=== PATIENT | male | born 1990 | race Caucasian/White ===

== ENCOUNTER 2020-05-06 05:52 | Day surgery (SDC) | payer BC ==
[2020-04-29 15:33] LABS: BASOPHILS # (AUTO) 0.1 X10'3 (0-0.2); BASOPHILS % (AUTO) 1.1 % (0-1); EOSINOPHILS # (AUTO) 0.2 X10'3 (0-0.9); EOSINOPHILS % (AUTO) 2.8 % (0-6); LYMPHOCYTES # (AUTO) 2.1 X10'3 (1.1-4.8); LYMPHOCYTES % (AUTO) 27.1 % (21-51); MEAN CORPUSCULAR HEMOGLOBIN 31.2 PG (27.0-31.0); MEAN CORPUSCULAR HGB CONC 33.7 g/dL (33.0-36.5); MEAN CORPUSCULAR VOLUME 92.8 FL (78-98); MEAN PLATELET VOLUME 7.4 FL (7.4-10.4); MONOCYTES # (AUTO) 0.7 X10'3 (0-0.9); MONOCYTES % (AUTO) 8.9 % (2-12); NEUTROPHILS # (AUTO) 4.6 X10'3 (1.8-7.7); NEUTROPHILS % (AUTO) 60.1 % (42-75); PRE OP HEMATOCRIT 52.5 % (42.0-52.0); PRE OP HEMOGLOBIN 17.7 g/dL (14.0-17.9); PRE OP PLATELET COUNT 383 X10'3 (140-440); RED BLOOD COUNT 5.66 X10'6 (4.70-6.10); RED CELL DISTRIBUTION WIDTH 14.1 % (11.5-14.5)
[2020-04-29 15:50] LABS: PRE OP PROTIME 10.1 SECONDS (9.0-12.0)
[2020-04-29 15:53] LABS: ALBUMIN 3.9 G/DL (3.4-5.0); ALKALINE PHOSPHATASE 78 IU/L (46-116); BLOOD UREA NITROGEN 9 MG/DL (7-18); BUN/CREATININE RATIO 6.2 (5.4-32.0); CALCIUM 9.2 MG/DL (8.5-10.1); CHLORIDE 106 MMOL/L (99-107); CREATININE 1.46 MG/DL (0.60-1.10); PRE OP ANION GAP 6 (8-16); PRE OP AST 51 U/L (10-37); PRE OP BILIRUB, TOTAL 0.4 MG/DL (0.0-1.0); PRE OP GLUCOSE 86 MG/DL (70-104); PRE OP POTASSIUM 4.4 MMOL/L (3.4-5.1); PRE OP SODIUM 140 MMOL/L (135-145); TOTAL CARBON DIOXIDE 27.8 MMOL/L (24-32); TOTAL PROTEIN 7.8 G/DL (6.4-8.2); eGFR 57 ML/MIN
[2020-04-29 15:56] LABS: PRE OP ALT 128 U/L (30-65)
[~2020-05-06] VITALS: Ht 185.4 cm; Wt 111.4 kg
[2020-05-06] VITALS (12 sets, daily range): BP systolic 132–159; BP diastolic 85–107
[~2020-05-06 05:52] MED LIST: NO HOME MEDS; famotidine 20mg tablet PO ONE; oxymetazoline 15 ML nasal spray NS PRN; ringers solution, lacted 1,000 ML IV SCH
[2020-05-06] MEDS ORDERED: cocaine 4% topical solution 4ml bottle ONE (06:57)
[2020-05-06] MEDS ORDERED: LIDOcaine 1% W/epiNEPHrine 1:100,000 20ml vial ONE (06:57)
[2020-05-06] MEDS ORDERED: oxymetazoline 15 ML nasal spray NS ONE ×2 (06:58→07:30)
[2020-05-06] MEDS ORDERED: cefTAZidime 1gm inj ONE (06:58)
[2020-05-06] MEDS ORDERED: mupirocin 2% ointment 22GM ONE (06:58)
[2020-05-06] MEDS ORDERED: methylPREDNISolone acetate 80mg/ml inj**IM only ONE (06:59)
[2020-05-06] MEDS ORDERED: cocaine 4% topical solution 4ml bottle MM ONE (07:30)
[2020-05-06] MEDS ORDERED: mupirocin 2% nasal ointment 1gm UD NS ONE (07:30)
[2020-05-06] MEDS ORDERED: LIDOcaine 1% W/epiNEPHrine 1:100,000 20ml vial IJ ONE (07:30)
[2020-05-06] MEDS ORDERED: BUPIVAcaine 0.5% W/EPI /PF 30ml vial IJ ONE (07:30)
[2020-05-06] MEDS ORDERED: fentaNYL/PF 50MCG/1 ML 2ML syringe ONE (08:07)
[2020-05-06] MEDS ORDERED: midazolam 2 mg/2 ml injection ONE (08:07)
[2020-05-06] MEDS ORDERED: ceFAZolin 1000mg inj ONE ×2 (08:26)
[2020-05-06] MEDS ORDERED: propofol inj 20 ML IV ONE (08:27)
[2020-05-06] MEDS ORDERED: dexamethasone sod phosphate 4mg/ml inj. ONE (08:32)
[2020-05-06] MEDS ORDERED: ringers solution, lacted 1,000 ML IV SCH (08:43)
[2020-05-06] MEDS ORDERED: proCHLORperazine 10 MG/2 ml inj IV PRN (08:45)
[2020-05-06] MEDS ORDERED: meperidine/PF 25mg/ml syringe IV PRN ×2 (08:45)
[2020-05-06] MEDS ORDERED: ondansetron/PF 4mg/2ml inj IV PRN (08:45)
[2020-05-06] MEDS ORDERED: morphine 4 MG/ML inj SYRINge IV PRN (08:45)
[2020-05-06] MEDS ORDERED: morphine 2 MG/ML inj. syringe IV PRN (08:45)
[2020-05-06] MEDS ORDERED: ondansetron/PF 4mg/2ml inj ONE (09:19)
--- NOTE | 2020-05-06 09:34 | NUR ---
Received from OR via [facility], accompanied by Anesthesiologist DR ARRIETA and report given by Anesthesiologist. PT DROWSY, DENIES PAIN, BILAT NARES W/COTTONOIDS IN PLACE, NO DRAINAGE OR OOZING. Addendum: 05/06/20 at 0947 by Trisha Zapata RN Amended: Links added.
[2020-05-06] MEDS: meperidine/PF 25mg/ml syringe IV PRN ×3 (10:02→10:49)
[2020-05-06] MEDS ORDERED: salt irrigation nasal spray 45 ML SPRAY NS SCH (10:15)
[2020-05-06] MEDS ORDERED: HYDROcodone/acetaminophen 10/325mg tab PO ONE (10:45)
--- NOTE | 2020-05-06 11:34 | NUR ---
BILAT COTTONOIDS REMOVED 30 MINUTES AFTER PTS ARRIVAL TO PACU PER MD ORDERS, PAIN IMPROVED AND PT ABLE TO AMBULATE SAFELY, VOIDED X 1, D/C INSTRUCTIONS GIVEN AND GONE OVER W/PT WHO VERBALIZED UNDERSTANDING. PT D/CD HOME VIA W/C TO PRIVATE VEHICLE W/O INCIDENT. Addendum: 05/06/20 at 1146 by Trisha Zapata RN Amended: Links added.
== END 2020-05-06 11:34 | disposition home or self-care (01) ==
LOC: PAS 05:52
PROVIDERS: ATTEND Otolaryngology
DX: J34.2 Deviated nasal septum (principal); J34.3 Hypertrophy of nasal turbinates; G47.30 Sleep apnea, unspecified; E66.9 Obesity, unspecified; Z68.32 Body mass index [BMI] 32.0-32.9, adult; Z79.01 Long term (current) use of anticoagulants; Z79.899 Other long term (current) drug therapy; Z87.891 Personal history of nicotine dependence; Z72.89 Other problems related to lifestyle; Z98.890 Other specified postprocedural states; Z20.828 Contact with and (suspected) exposure to other viral communicable diseases
CPT/HCPCS: 30140; 30520; 36415; 80053; 82948; 85025; 85576; 85610; 85730; 87635; A6402; C9250; C9803; J0690; J0713; J1040; J1100; J2175; J2250; J2405; J2704; J3010; J7040; A4618; A7000; J7120